=== PATIENT | male | born 1995 | race Caucasian/White ===

== ENCOUNTER 2017-03-04 08:08 | Emergency (ER) | payer OTHER ==
[2017-03-04 08:10] VITALS: BP 141/66
--- NOTE | 2017-03-04 08:26 | PHYS DOC ---
Past History Past Medical History: Other Past Surgical History: Other Smoking: Non-smoker Alcohol Use: None Drug Use: None Adult General HPI HPI Patient is a 21-year-old male who presents to complaints of a sore throat that has been going on for 4 days. Patient has had a sick contact with strep and has a history of multiple strep infections. Denies any fevers, chills, rashes. Patient has no other significant past medical history. Review of Systems Review of Systems Constitutional: Denies fever or chills [] HENT: Yes nasal congestion and sore throat [] Respiratory: Denies cough or shortness of breath [] Cardiovascular: No chest pain GI: Denies abdominal pain, nausea, vomiting, or diarrhea [] Musculoskeletal: Denies back pain or joint pain [] Integument: Denies rash or skin lesions [] Neurologic: Denies headache, focal weakness or sensory changes [] Allergies Allergies Allergies Coded Allergies Type Severity Reaction Last Updated Verified Penicillins Adverse Reaction Intermediate 09/07/14 Yes Physical Exam Physical Exam Constitutional: Well developed, well nourished, no acute distress, non-toxic appearance. [] HENT: Normocephalic, atraumatic, bilateral external ears normal, oropharynx moist and he has mild erythema, no oral exudates, nose normal. [] Eyes: EOMI, conjunctiva normal, no discharge. [] Neck: Normal range of motion, trachea midline, no LAD, no meningeal signs[] Cardiovascular:Heart rate regular rhythm, no murmur, normal perfusion Lungs & Thorax: Bilateral breath sounds clear to auscultation, no tachypnea Abdomen: Bowel sounds normal, soft, no tenderness Skin: Warm, dry, no erythema, no rash. [] Back: Normal range of motion Extremities: No tenderness, no cyanosis, no DVT, ROM intact, no edema. [] Neurologic: Alert and oriented X 3, normal motor function, ambulates in the ED without assistance and with normal gait, no focal deficits noted. [] Psychologic: Affect normal, judgement normal, mood normal. [] EKG EKG [] Radiology/Procedures Radiology/Procedures [] Impressions: Patient looks well and is nontoxic physical exam is unremarkable. Given the positive findings and the unremarkable physical exam I do believe the patient is in need of inpatient evaluation and is stable for outpatient workup. Strict return precautions have been discussed with the patient and the family who agree to follow-up as directed. Course & Med Decision Making Course & Med Decision Making Pertinent Labs and Imaging studies reviewed. (See chart for details) strep negative [] Dragon Disclaimer Dragon Disclaimer This chart was dictated in whole or in part using Voice Recognition software in a busy, high-work load, and often noisy Emergency Department environment. It may contain unintended and wholly unrecognized errors or omissions. Departure Departure: Impression: Primary Impression: Pharyngitis Disposition: HOME, SELF-CARE Condition: STABLE Referrals: GUMARO SIMON DO (PCP) Please follow with general PCP for recheck and reevaluation in 3-5 days Patient Instructions: Viral and Bacterial Pharyngitis Additional Instructions: She may use nasal saline spray for comfort Scripts Benzonatate (TESSALON PERLE) 100 Mg Capsule 1 CAP PO TID, #21 CAP Prov: Tiana TOTH MD 03/04/17 Tiana TOTH MD Mar 04, 2017 08:26
[2017-03-04] MEDS ORDERED: BENZ100C PO (08:33)
[2017-03-04] MEDS: DEXAMETHASONE SOD PHOS 10 MG/ML VIAL IV ONE ×2 (08:35→08:45)
== END 2017-03-04 08:40 | disposition home or self-care (01) ==
LOC: ER 08:08
DX: J02.9 Acute pharyngitis, unspecified (principal); R09.81 Nasal congestion; Z88.0 Allergy status to penicillin
CPT/HCPCS: 87070; 87880; 96374; 99284; J1100

== ENCOUNTER 2018-11-30 16:43 | Emergency (ER) | payer OTHER ==
[~2018-11-30] VITALS: Ht 177.8 cm; Wt 83.9 kg
[~2018-11-30 16:43] MED LIST: BENZ100C PO
[2018-11-30 16:50] VITALS: BP 122/74
[2018-11-30] MEDS ORDERED: KETO5DRO4 EACHEYE (17:01)
[2018-11-30] MEDS ORDERED: PROP15DR40 EACHEYE (17:01)
--- NOTE | 2018-11-30 17:01 | PHYS DOC ---
Past History Past Medical History: Other Past Surgical History: No Surgical History Smoking: Non-smoker Alcohol Use: None Drug Use: None Adult General Chief Complaint Chief Complaint: EYE PROBLEMS HPI HPI Patient is a 23-year-old male presents complaining of bilateral eye irritation. Approximately 30 minutes prior to arrival he accidentally wiped his eye while that was still sunscreen on his hand. He has had itching and discomfort ever since then. He did flush his eyes with water. He has not used any medicine nor any eyedrops. He denies any metal on metal contact. Denies any UV welding. Denies any visual changes. He has glasses for distance which she was not wearing. He denies contact lens use. Denies any purulent discharge but does note there is watery discharge. He reports that his symptoms are getting better over time. Currently moderate in intensity.[] Review of Systems Review of Systems Constitutional: Denies fever or chills [] Eyes: See history of present illness[] HENT: Denies nasal congestion or sore throat [] Respiratory: Denies cough or shortness of breath [] Cardiovascular: No chest pain or palpitations[] GI: Denies abdominal pain, nausea, vomiting, bloody stools or diarrhea [] : Denies dysuria or hematuria [] Musculoskeletal: Denies back pain or joint pain [] Integument: Denies rash or skin lesions [] Neurologic: Denies headache, focal weakness or sensory changes [] Endocrine: Denies polyuria or polydipsia [] All other systems were reviewed and found to be within normal limits, except as documented in this note. Allergies Allergies Allergies Coded Allergies Type Severity Reaction Last Updated Verified Penicillins Adverse Reaction Intermediate 09/07/14 Yes Physical Exam Physical Exam Constitutional: Well developed, well nourished, no acute distress, non-toxic appearance. [] HENT: Normocephalic, atraumatic, bilateral external ears normal, oropharynx moist, no oral exudates, nose normal. [] Eyes: PERRLA, EOMI, conjunctiva are injected bilaterally, cobblestone papillae on bilateral lower lids, fundi are normal, visual acuity is 20/20 in the left eye, right eye, and bilaterally utilizing a near distance card without correction, watery discharge. [] Neck: Normal range of motion, no tenderness, supple, no stridor. [] Cardiovascular:Heart rate regular rhythm, no murmur [] Lungs & Thorax: Bilateral breath sounds clear to auscultation [] Abdomen: Not examined[] Skin: Warm, dry, no erythema, no rash. [] Back: No tenderness, no CVA tenderness. [] Extremities: No tenderness, no cyanosis, no clubbing, ROM intact, no edema. [] Neurologic: Alert and oriented X 3, normal motor function, normal sensory fun ction, no focal deficits noted. [] Psychologic: Affect normal, judgement normal, mood normal. [] EKG EKG [] Radiology/Procedures Radiology/Procedures [] Course & Med Decision Making Course & Med Decision Making Pertinent Labs and Imaging studies reviewed. (See chart for details) Medical decision making: This appears to be an allergic/chemical contact irritant conjunctivitis. There is no evidence of systemic involvement.[] Dragon Disclaimer Dragon Disclaimer This electronic medical record was generated, in whole or in part, using a voice recognition dictation system. Departure Departure: Impression: Primary Impression: Conjunctivitis Disposition: HOME, SELF-CARE Condition: IMPROVED Referrals: PCP,UNKNOWN (PCP) Patient Instructions: Allergic Conjunctivitis, Conjunctivitis, Chemical Additional Instructions: Follow-up with your primary care physician in 2 days. If you do not have a primary care physician, list of local clinics will be provided for you. Return to the ER if worsening pain, change in vision, purulent drainage, or any other concerns. Scripts Propylene Glycol/Peg 400 (SYSTANE 0.3-0.4% EYE DROPS) 15 Ml Drops 1 DROP EACHEYE QID for eye irritation, #30 ML 0 Refills Prov: GIOVANNA JACKSON DO 11/30/18 Ketotifen Fumarate (ZADITOR) 5 Ml Drops 1 DROP EACHEYE BID for conjunctivitis, #5 ML Prov: GIOVANNA JACKSON DO 11/30/18 Problem Qualifiers Primary Impression: Conjunctivitis Conjunctivitis type: acute Acute conjunctivitis type: unspecified Laterality: bilateral Qualified Codes: H10.33 - Unspecified acute conjunctivitis, bilateral GIOVANNA JACKSON DO Nov 30, 2018 17:01
== END 2018-11-30 17:29 | disposition home or self-care (01) ==
LOC: ER 16:43
DX: H10.33 Unspecified acute conjunctivitis, bilateral (principal); Z88.0 Allergy status to penicillin
CPT/HCPCS: 99282